=== PATIENT | male | born 1975 | race Caucasian/White ===

== ENCOUNTER 2017-01-11 11:29 | Emergency (ER) | payer BC ==
[2017-01-11 11:33] VITALS: BMI 30.7
--- NOTE | 2017-01-11 11:48 | DR.GENAD ---
HPI - PCP Primary Care Physician: LUZMARIA SOLITARIO - HPI Comment HPI Comment: HISTORY BELOW. - Complaint/Symptoms Chief Complaint Doctors Comments: PATIENT SAID HIS LATERAL RIGHT NECK POP AND WAS HURTING. TINGLING ANF NUMBNESS RT SIDE. GETTING WORSE. BP ELEVATED IN ED. NO HISTORY OF HTN. NO HISTORY OF FEVER OR TRAUMA. Chief Complaint:: PT STATES " I WAS SITTING DOWN AND I TURNED MY NECK AND I FELT A POP AND MY RIGHT SIDE OF MY NECK SWELLED UP AND MY ARMS BEGAN TO BURN AND TINGLE".. Self Treatment fo Chief Complaint: PT DENIES ANY C/P OR SOB.. - Nurses notes reviewed Nurses Notes Review: Yes - Source History Provided: Patient - Mode of Arrival Mode of Arrival: Ambulatory - Timing Onset of Chief Complaint: 01/11/17 Came on: Suddenly - Duration Duration: Constant Duration: Hours - Severity Severity: Moderate PMH - PMH Past Medical History: No Past Surgical History: Yes Past Surgical History Comment: KNEE INJURY. - Family History History of Family Medical Conditions: Yes Family Medical History Comment: CVA, HEART PROBLEMS . - Social History Does patient currently use any type of tobacco product: No Have you used tobacco products in the last 12 months: No Type of Tobacco Use: None Does any household member use tobacco: No Alcohol Use: None Do you use any recreational Drugs:: No Lives With: Family Lives Where: Home - infectious screening In the last 2 months have you had wt loss of >10#?: NO Have you had fever, night sweats or hemotysis?: No Have you traveled outside the country in the last 6 months?: No Isolation: Standard ROS - Review of Systems Constitutional: No Symptoms Reported. negative: Chills, Fever, Weakness, Fatigue Eyes: No Symptoms Reported. negative: Eye Pain, Discharge ENTM: No Symptoms Reported. negative: Ear Pain, Nose Discharge, Nose Congestion , Throat Pain Respiratoy: No Symptoms Reported. negative: Productive Cough, Non-Productive Cough, Short of Breath, Wheezing, Hemoptysis Cardiovascular: No Symptoms Reported. negative: Chest Pain, Edema, Palpitations , Syncope Gastrointestinal/Abdominal: No Symptoms Reported. negative: Abdominal Pain, Diarrhea, Nausea, Vomiting Genitourinary: No Symptoms Reported. negative: Dysuria, Frequency, Hematuria Neurological: Numbness, Tingling (RIGHT SIDE) Musculoskeletal: Muscle Pain Integumentary: No Symptoms Reported Hematologic/Lymphatic: No Symptoms Reported Endocrine: No Symptoms Reported All Other Systems: Reviewed and Negative PE - Vital Signs Vitals: Pulse Rate [Left Brachial] 91 Pulse Rate 96 Respiratory Rate 18 Blood Pressure [Left Arm] 169/103 Blood Pressure 181/115 O2 Sat by Pulse Oximetry 98 - General Limitations: No Limitations General Appearance: Alert - Head Head Exam: Normal Inspection - Eyes Eye exam: Normal Appearance - ENT ENT Exam: Normal External Ear Exam External Ear Exam: Normal External Inspection TM/Canal Exam: Bilateral Normal Nose Exam: Normal Nose Exam Mouth Exam: Normal Inspection Throat Exam: Normal Inspection - Neck Neck Exam: Normal Inspection - Chest Chest Inspection: Symmetric Chest Wall Rise - Respiratory Respiratory Exam: Normal Lung Sounds Bilat Respiratory Exam: Bilateral Clear to Auscultation - Cardiovascular Cardiovascular Exam: Regular Rate, Normal Rhythm, Normal Heart Sounds - Abdominal Exam Abdominal Exam: Normal Bowel Sounds, Soft. negative: Tenderness - Extremities Extremities Exam: Normal Inspection - Back Back Exam: Normal Inspection - Neurologic Neurological Exam: Alert, Oriented X3, CN II-XII Intact, Normal Gait, Reflexes Normal. negative: Motor Sensory Deficit - Psychiatric Psychiatric Exam: Anxious - Skin Skin Exam: Normal Color MDM - Additional Information Additional Information Obtained From: Family - Differential Diagnosis Differential Diagnosis: PARESTHESIA, RIGHT SIDE, CVA, TIA, NECK PAIN, HTN Course - Treatment Treatment: SEE ORDERS. - Reevaluation 1st: Unchanged - Consultation Consultation Comments: DISCUSS PATIENT WITH DR. PIMENTEL. HE WILL ADMIT PATIENT. - Education/Counseling Education/Counseling: Patient, Family, Education Educated On: Treatment, Diagnosis, Needs for Follow Up ROR - Labs Reviewed Laboratory Results Reviewed?: Yes Result Diagrams: 01/12/17 04:43 01/12/17 04:43 Laboratory: WBC 5.2 X10^3/uL (3.6-10.0) 01/11/17 12:13 RBC 5.15 X10^6/uL (3.5-5.4) 01/11/17 12:13 Hgb 15.7 g/dL (12.0-16.0) 01/11/17 12:13 Hct 45.8 % (36.0-47.0) 01/11/17 12:13 MCV 89.0 fL (80.0-100.0) 01/11/17 12:13 MCH 30.4 pg (27.0-34.0) 01/11/17 12:13 MCHC 34.2 g/dL (33.0-35.0) 01/11/17 12:13 RDW 14.1 % (11.6-16.5) 01/11/17 12:13 Plt Count 139 X10^3/uL (150.0-450.0) L 01/11/17 12:13 MPV 9.2 fL (7.4-11.0) 01/11/17 12:13 Neut % 48.0 % (42.0-75.0) 01/11/17 12:13 Lymph % 35.0 % (21.0-51.0) 01/11/17 12:13 [place] % 12.3 % (0.0-13.0) 01/11/17 12:13 Eos % 4.3 % (0.9-2.9) H 01/11/17 12:13 Baso % 0.4 % (0.2-1.0) 01/11/17 12:13 Neut # 2.5 x10^3/uL (2.2-4.8) 01/11/17 12:13 Lymph # 1.8 X10^3/uL (1.3-2.9) 01/11/17 12:13 [place] # 0.6 x10^3/uL (0.3-0.8) 01/11/17 12:13 Eos # 0.2 x10^3/uL (0.0-0.2) 01/11/17 12:13 Baso # 0.0 X10^3/uL (0.0-0.1) 01/11/17 12:13 Absolute Nucleated RBC 0.0 /100WBC 01/11/17 12:13 Sodium 141 mmol/L (136-145) 01/11/17 12:13 Corrected Sodium TNP 01/11/17 12:13 Potassium 3.8 mmol/L (3.5-5.1) 01/11/17 12:13 Chloride 105 mmol/L (98-107) 01/11/17 12:13 Carbon Dioxide 31.1 mmol/L (21-32) 01/11/17 12:13 BUN 14 mg/dL (7-18) 01/11/17 12:13 Creatinine 1.34 mg/dL (0.55-1.02) H 01/11/17 12:13 Est GFR (MDRD) Af Amer 56 (>60) L 01/11/17 12:13 Est GFR (MDRD) Non-Af 46 (>60) L 01/11/17 12:13 Glucose 101 mg/dL (65-99) H 01/11/17 12:13 Calcium 9.4 mg/dL (8.5-10.1) 01/11/17 12:13 Corrected Calcium TNP 01/11/17 12:13 Total Bilirubin 0.50 mg/dL (0.2-1.0) 01/11/17 12:13 AST 46 Units/L (15-37) H 01/11/17 12:13 ALT 78 Units/L (12-78) 01/11/17 12:13 Alkaline Phosphatase 52 Units/L (46-116) 01/11/17 12:13 Total Protein 7.3 g/dL (6.4-8.2) 01/11/17 12:13 Albumin 3.8 g/dL (3.4-5.0) 01/11/17 12:13 Globulin 3.5 g/dL (2.5-4.5) 01/11/17 12:13 Albumin/Globulin Ratio 1.1 Ratio (1.1-2.1) 01/11/17 12:13 - XRAY XRAY Interpreted by: Radiologist XRAY Findings: REPORT DISCUSS WITH PATIENT. - EKG Rhythm: NSR (EKG NOTED.) - Diagnosis Discharge Problem: Meralgia paresthetica of right side HTN (hypertension) Qualifiers: Hypertension type: unspecified Qualified Code(s): I10 - Essential (primary) hypertension Rhabdomyolysis Qualifiers: Rhabdomyolysis type: non-traumatic Qualified Code(s): M62.82 - Rhabdomyolysis - Discharge Plan Disposition: ADMITTED INPATIENT Condition: Stable - Follow ups/Referrals - Instructions
[2017-01-11 12:22] LABS: BASOPHILS % (AUTO) 0.4 % (0.2-1.0); EOSINOPHILS # (AUTO) 0.2 x10^3/uL (0.0-0.2); EOSINOPHILS % (AUTO) 4.3 % (0.9-2.9); HEMATOCRIT 45.8 % (36.0-47.0); HEMOGLOBIN 15.7 g/dL (12.0-16.0); LYMPHOCYTES # (AUTO) 1.8 X10^3/uL (1.3-2.9); MEAN CORPUSCULAR HEMOGLOBIN 30.4 pg (27.0-34.0); MEAN CORPUSCULAR HGB CONC 34.2 g/dL (33.0-35.0); MEAN PLATELET VOLUME 9.2 fL (7.4-11.0); MONOCYTES # (AUTO) 0.6 x10^3/uL (0.3-0.8); MONOCYTES % (AUTO) 12.3 % (0.0-13.0); NEUTROPHILS # (AUTO) 2.5 x10^3/uL (2.2-4.8); PLATELET COUNT 139 X10^3/uL (150.0-450.0); RED BLOOD COUNT 5.15 X10^6/uL (3.5-5.4); RED CELL DISTRIBUTION WIDTH 14.1 % (11.6-16.5); WHITE BLOOD COUNT 5.2 X10^3/uL (3.6-10.0)
[2017-01-11 12:40] LABS: ALANINE AMINOTRANSFERASE 78 Units/L (12-78); ALBUMIN 3.8 g/dL (3.4-5.0); ALKALINE PHOSPHATASE 52 Units/L (46-116); ASPARTATE AMINO TRANSFERASE 46 Units/L (15-37); BLOOD UREA NITROGEN 14 mg/dL (7-18); CALCIUM 9.4 mg/dL (8.5-10.1); CARBON DIOXIDE 31.1 mmol/L (21-32); CHLORIDE 105 mmol/L (98-107); CREATININE 1.34 mg/dL (0.55-1.02); GLUCOSE 101 mg/dL (65-99); SODIUM 141 mmol/L (136-145); TOTAL PROTEIN 7.3 g/dL (6.4-8.2); eGFR BLACK RACES 56 (>60); eGFR NON BLACK RACES 46 (>60)
--- NOTE | 2017-01-11 13:24 | CT ---
HISTORY: Numbness. Study: CT brain without contrast Comparison: None available. Technique: Multiple axial images of the brain were obtained from the skull base to the vertex without administra tion of IV contrast. Dose reduction techniques including Automated Exposure Control (AEC) and adjust ment of mA and kV were utilized. Findings: No acute intraparenchymal hemorrhage or mass can be identified. No extra-axial fluid collections are seen. No alteration in the attenuation of the brain parenchyma can be identified to suggest acute o r subacute ischemic change. The ventricular system is symmetric and nondilated. The extracranial st ructures are grossly unremarkable. IMPRESSION: No acute intracranial pathology. Reported By:
--- NOTE | 2017-01-11 13:27 | CT ---
HISTORY: Pain and arm numbness. Study: CT cervical spine without contrast Comparison: None. Technique: Multiple axial images of the cervical spine were obtained from the skull base to the thora cic inlet without administration of IV contrast. Sagittal and coronal reformats were performed and r eviewed. Dose reduction techniques including Automated Exposure Control (AEC) and adjustment of mA an d kV were utilized. Findings: Anatomic alignment without acute fracture or listhesis. The vertebral body heights and disc spaces ar e maintained. No significant neural foraminal narrowing or spinal canal stenosis. The prevertebral so ft tissues and lung apices appear normal. IMPRESSION: No acute cervical pathology. Reported By:
[2017-01-11] MEDS ORDERED: NIFEDIPINE CAP 10 MG PO ONE (13:51)
[2017-01-11] MEDS ORDERED: ECOTRIN TAB 325 MG PO ONE ×2 (13:52→16:30)
[2017-01-11 14:13] LABS: CREATINE KINASE MB 2.2 ng/mL (0-4.0); TROPONIN I < 0.02 ng/mL (0-1.5)
[2017-01-11 14:17] LABS: CKMB % 0.2 % (<4); CREATINE KINASE 1058 Units/L (26-192)
[2017-01-11] MEDS ORDERED: CATAPRES TAB 0.1 MG PO PRN (14:46)
[2017-01-11 17:08] LABS: BILIRUBIN,URINE NEGATIVE (NEGATIVE); BLOOD/HEMOGLOBIN,URINE NEGATIVE (NEGATIVE); GLUCOSE, URINE NEGATIVE (NEGATIVE); KETONES,URINE NEGATIVE (NEGATIVE); LEUKOCYTE ESTERASE ,URINE NEGATIVE (NEGATIVE); NITRITES,URINE NEGATIVE (NEGATIVE); PROTEIN,URINE NEGATIVE (NEGATIVE); UROBILINOGEN,URINE NORMAL (NORMAL)
[2017-01-11 17:16] LABS: APPEARANCE,URINE CLEAR (CLEAR); BACTERIA,URINE NEGATIVE /HPF (NEGATIVE); COLOR,URINE YELLOW (YELLOW); RBC,URINE 0 /HPF (NEGATIVE); SQUAMOUS EPITHELIAL CELL,UR RARE /HPF (NEGATIVE)
[2017-01-11 19:11] LABS: CKMB % 0.2 % (<4); CREATINE KINASE 841 Units/L (26-192); CREATINE KINASE MB 1.4 ng/mL (0-4.0); TROPONIN I < 0.02 ng/mL (0-1.5)
[2017-01-12 00:58] LABS: CKMB % 0.1 % (<4); CREATINE KINASE 751 Units/L (26-192); TROPONIN I < 0.02 ng/mL (0-1.5)
[2017-01-12 06:10] LABS: BASOPHILS % (AUTO) 0.4 % (0.2-1.0); EOSINOPHILS # (AUTO) 0.2 x10^3/uL (0.0-0.2); EOSINOPHILS % (AUTO) 3.7 % (0.9-2.9); HEMATOCRIT 47.6 % (36.0-47.0); HEMOGLOBIN 16.1 g/dL (12.0-16.0); LYMPHOCYTES # (AUTO) 2.1 X10^3/uL (1.3-2.9); LYMPHOCYTES % (AUTO) 37.3 % (21.0-51.0); MEAN CORPUSCULAR HGB CONC 33.8 g/dL (33.0-35.0); MEAN CORPUSCULAR VOLUME 88.8 fL (80.0-100.0); MEAN PLATELET VOLUME 10.2 fL (7.4-11.0); MONOCYTES # (AUTO) 0.7 x10^3/uL (0.3-0.8); MONOCYTES % (AUTO) 12.4 % (0.0-13.0); NEUTROPHILS # (AUTO) 2.6 x10^3/uL (2.2-4.8); NEUTROPHILS % (AUTO) 46.2 % (42.0-75.0); PLATELET COUNT 164 X10^3/uL (150.0-450.0); RED BLOOD COUNT 5.36 X10^6/uL (3.5-5.4); RED CELL DISTRIBUTION WIDTH 14.3 % (11.6-16.5); WHITE BLOOD COUNT 5.7 X10^3/uL (3.6-10.0)
[2017-01-12 06:26] LABS: ALANINE AMINOTRANSFERASE 77 Units/L (12-78); ALBUMIN 3.6 g/dL (3.4-5.0); ALKALINE PHOSPHATASE 50 Units/L (46-116); ASPARTATE AMINO TRANSFERASE 42 Units/L (15-37); BLOOD UREA NITROGEN 10 mg/dL (7-18); CARBON DIOXIDE 26.5 mmol/L (21-32); CHLORIDE 106 mmol/L (98-107); CHOL/HDL RATIO 3.7 (0.0-5.0); CHOLESTEROL 107 mg/dL (0-200); CREATININE 1.17 mg/dL (0.55-1.02); GLUCOSE 95 mg/dL (65-99); HDL CHOLESTEROL 29 mg/dL (40-60); MAGNESIUM 2.1 mg/dL (1.7-2.9); SODIUM 141 mmol/L (136-145); TOTAL PROTEIN 7.1 g/dL (6.4-8.2); TRIGLYCERIDES 87 mg/dL (0-150); eGFR BLACK RACES > 60 (>60); eGFR NON BLACK RACES 54 (>60)
[2017-01-12] MEDS ORDERED: ASPIRIN PO SCH (09:00)
--- NOTE | 2017-01-12 12:46 | MRI ---
HISTORY: Neck pain, radiculopathy Study: MRI cervical spine without contrast Comparison: None Technique: Multiplanar multisequence MRI of the cervical spine was obtained utilizing standard [facility] mental protocol. Findings: Alignment of the cervical spine is maintained. No abnormal signal characteristics of the bone marrow can be identified. No evidence for fracture or significant bone or edema can be seen. The surround ing soft tissues are unremarkable. The cervical spinal cord is normal in size and configuration and without foci of abnormal signal or syrinx. C2 -- C3: No evidence for compressive disc disease. The neural foramina are patent. C3 -- C4: No evidence for compressive disc disease. The neural foramina are patent. C4 -- C5: No evidence for compressive disc disease. The neural foramina are patent. C5 -- C6: No evidence for compressive disc disease. There is mild spondylitic foraminal narrowing diamond aterally. C6 -- C7: No evidence for compressive disc disease. The neural foramina are patent. C7 -- T1: No evidence for compressive disc disease. The neural foramina are patent. IMPRESSION: As above Reported By:
[2017-01-12 12:48] VITALS: BP 112/56
== END 2017-01-12 16:00 | disposition home or self-care (01) ==
LOC: ER 11:41 → MED/SURG 14:42 → EDSEX 14:42
PROVIDERS: ADMIT Obstetrics & Gynecology Obstetrics; ATTEND Obstetrics & Gynecology Obstetrics
DX: R20.8 Other disturbances of skin sensation (principal); M54.2 Cervicalgia; I10 Essential (primary) hypertension; R94.4 Abnormal results of kidney function studies; R94.8 Abnormal results of function studies of other organs and systems; M62.82 Rhabdomyolysis; G57.11 Meralgia paresthetica, right lower limb
CPT/HCPCS: 36415; 70450; 72125; 72141; 80053; 80061; 81001; 82550; 82553; 83735; 84484; 85025; 93005; 93010; 94760; 96365; 96374; 99284; A4216; A4222; G0378